=== PATIENT | male | born 1965 | race Caucasian/White ===

== ENCOUNTER 2016-07-03 10:48 | Emergency (ER) | payer BC ==
[2016-07-03 11:01] VITALS: BP 169/98
--- NOTE | 2016-07-03 11:57 | UC ---
Knee Pain HPI - HPI Summary HPI Summary: fell on Ice 3 days ago pain and swelling left knee-limping but can wb - History of Current Complaint Chief Complaint: UCLowerExtremity Stated Complaint: KNEE INJURY Time Seen by Provider: 07/03/16 11:54 Hx Obtained From: Patient Onset/Duration: Sudden Onset, Lasting Days - 3, Still Present Severity Initially: Moderate Severity Currently: Moderate Location Of Injury: left anterior knee Pain Intensity: 8 Pain Scale Used: 0-10 Numeric Character: Aching, Throbbing Aggravating Factor(s): Movement, Weight Bearing Alleviating Factor(s): Nothing Associated Signs And Symptoms: Positive: Swelling Able to Bear Weight: Yes - with pain - Allergies/Home Medications Allergies/Adverse Reactions: Allergies Allergy/AdvReac Type Severity Reaction Status Date / Time No Known Allergies Allergy Verified 07/03/16 10:57 Home Medications: Home Medications NK [No Home Medications Reported] 07/03/16 [History Confirmed 07/03/16] PMH/Surg Hx/FS Hx/Imm Hx Previously Healthy: No Endocrine History Of: Denies: Diabetes, Thyroid Disease Cardiovascular History Of: Reports: Hypertension - on bp meds as of 06/2013 Denies: Cardiac Disorders Respiratory History Of: Denies: COPD, Asthma GI/ History Of: Denies: Ulcer - Surgical History Surgical History: None - Family History Known Family History: Positive: Hypertension - Social History Occupation: Employed Full-time Lives: With Family Alcohol Use: Occasionally Alcohol Amount: 2 beers, twice a week Substance Use Type: None Substance Use Comment - Amount & Last Used: Hx cocaine use, > 20 years ago Smoking Status (MU): Heavy Every Day Tobacco Smoker Type: Cigarettes Amount Used/How Often: 1 ppd Length of Time of Smoking/Using Tobacco: 25 yrs Have You Smoked in the Last Year: Yes Household Exposure Type: Cigarettes Cessation Counseling: Counseled 3+Min - 10 Min Review of Systems Constitutional: Negative Skin: Negative Eyes: Negative ENT: Negative Respiratory: Negative Cardiovascular: Negative Gastrointestinal: Negative Genitourinary: Negative Motor: Negative Neurovascular: Negative Musculoskeletal: Negative, Arthralgia - left knee, Edema - left knee Neurological: Negative Psychological: Negative All Other Systems Reviewed And Are Negative: Yes Physical Exam Triage Information Reviewed: Yes Appearance: Well-Appearing, Pain Distress - mild, Obese Vital Signs: Initial Vital Signs Temp 99.0 F 07/03/16 10:59 Pulse 95 07/03/16 10:59 Resp 20 07/03/16 10:59 BP 169/98 07/03/16 10:59 Pulse Ox 99 07/03/16 10:59 Vital Signs Reviewed: Yes Eye Exam: Normal Eyes: Positive: Conjunctiva Clear ENT Exam: Normal ENT: Positive: Normal ENT inspection, Hearing grossly normal. Negative: Nasal congestion, Nasal drainage, Trismus, Muffled/hoarse voice Dental Exam: Normal Neck exam: Normal Neck: Positive: Supple, Nontender Respiratory Exam: Normal Respiratory: Positive: Chest non-tender, No respiratory distress, No accessory muscle use Cardiovascular Exam: Normal Cardiovascular: Positive: RRR, No Murmur, Pulses Normal, Brisk Capillary Refill Musculoskeletal Exam: Normal Musculoskeletal: Positive: Strength Intact, ROM Intact, Edema @ - left knee Neurological Exam: Normal Neurological: Positive: Alert Psychological Exam: Normal Skin Exam: Normal Diagnostics - Radiology No standard instances Xray Interpretation: No Acute Changes Radiology Interpretation Completed By: Radiologist Knee Pain Course/Dx - Course Course Of Treatment: rice, ibuprofen follow with ortho, bp recheck with pcp. nicotine cesation information - Differential Dx/Diagnosis Differential Diagnosis/HQI/PQRI: Contusion, Fracture (Closed), Sprain, Strain Provider Diagnoses: left knee contusion, hypertension with diagnosis, nicotine dependant Discharge - Discharge Plan Condition: Stable Disposition: HOME Patient Education Materials: How to Stop Smoking (ED), Cigarette Smoking and Your Health (GEN), Chronic Hypertension (ED), Contusion in Adults (ED), Knee Pain (ED), DASH Eating Plan (ED), RICE Therapy (ED) Referrals: Zohaib Omalley MD [Primary Care Provider] - 5 Days Chad Hanks MD [Medical Doctor] - 5 Days
--- NOTE | 2016-07-03 12:43 | RAD ---
Indication: Left knee pain swelling 4 views of left knee demonstrates no fracture or dislocation. Joint spaces all well-preserved. No joint effusion noted. IMPRESSION: Unremarkable left knee.
== END 2016-07-03 13:08 | disposition home or self-care (01) ==
LOC: UCEAST 10:48
DX: S80.02XA Contusion of left knee, initial encounter (principal); W00.0XXA Fall on same level due to ice and snow, initial encounter; Y93.9 Activity, unspecified; Y92.9 Unspecified place or not applicable; E66.9 Obesity, unspecified; I10 Essential (primary) hypertension; F17.210 Nicotine dependence, cigarettes, uncomplicated; Z71.6 Tobacco abuse counseling
CPT/HCPCS: 99212; G0463

== ENCOUNTER 2016-10-14 11:25 | Emergency (ER) | payer BC ==
--- NOTE | 2016-10-14 13:10 | RAD ---
INDICATION: Cough. COMPARISON: Comparison is made with a prior study from October 05, 2005. TECHNIQUE: Dual-energy PA and lateral views of the chest were obtained. FINDINGS: The heart is moderately enlarged and has increased in size. There is mild prominence of the interstitial markings. No significant focal infiltrate or pleural effusion is seen. There is flattening of the diaphragms suggestive of chronic obstructive pulmonary disease. There are chronic moderate compression fractures of lower dorsal and upper lumbar vertebra. IMPRESSION: 1. CARDIOMEGALY, INCREASED IN SIZE. 2. FINDINGS SUGGESTIVE OF COPD. 3. CHRONIC VERTEBRAL BODY COMPRESSION FRACTURES, UNCHANGED.
[2016-10-14 13:52] VITALS: BP 165/100
--- NOTE | 2016-10-14 14:36 | UC ---
Respiratory Complaint HPI - HPI Summary HPI Summary: THREE DAYS OF PRODUCTIVE COUGH; HEAD CONGESTION; LOW GRADE FEVER; NO CHEST PAIN. - History of Current Complaint Chief Complaint: UCRespiratory Stated Complaint: CHEST CONGESTION Time Seen by Provider: 10/14/16 12:23 Hx Obtained From: Patient Onset/Duration: Gradual Onset, Lasting Days, Still Present Severity Initially: Moderate Severity Currently: Moderate Pain Intensity: 0 Pain Scale Used: 0-10 Numeric Character: Cough: Productive Aggravating Factors: Nothing Alleviating Factors: Nothing Associated Signs And Symptoms: Positive: URI, Nasal Congestion, Hoarseness, Sinus Discomfort. Negative: Calf Pain, Calf Swelling - Risk Factors Pulmonary Embolism Risk Factors: Negative Cardiac Risk Factors: Negative Pseudomonas Risk Factors: Negative Tuberculosis Risk Factors: Negative - Allergies/Home Medications Allergies/Adverse Reactions: Allergies Allergy/AdvReac Type Severity Reaction Status Date / Time No Known Allergies Allergy Verified 10/14/16 11:32 Home Medications: Home Medications Pseudoephedrine TAB* [Sudafed TAB*] 1 tab PO 10/14/16 [History] PMH/Surg Hx/FS Hx/Imm Hx Previously Healthy: Yes - Surgical History Surgical History: None - Family History Known Family History: Positive: Cardiac Disease, Hypertension - Social History Occupation: Employed Full-time Lives: With Family Alcohol Use: Weekly Alcohol Amount: 2 beers, twice a week Substance Use Type: None Substance Use Comment - Amount & Last Used: Hx cocaine use, > 20 years ago Smoking Status (MU): Heavy Every Day Tobacco Smoker Type: Cigarettes Amount Used/How Often: 1 ppd Length of Time of Smoking/Using Tobacco: 25 yrs Have You Smoked in the Last Year: Yes Household Exposure Type: Cigarettes Cessation Counseling: Patient Advised to Stop Review of Systems Constitutional: Negative Skin: Negative Eyes: Negative ENT: Nasal Discharge, Sinus Congestion, Sinus Pain/Tenderness Respiratory: Cough Cardiovascular: Negative Gastrointestinal: Negative Genitourinary: Negative Motor: Negative Neurovascular: Negative Musculoskeletal: Negative Neurological: Negative Psychological: Negative All Other Systems Reviewed And Are Negative: Yes Physical Exam Triage Information Reviewed: Yes Appearance: Well-Appearing, No Pain Distress Vital Signs: Initial Vital Signs Temp 99.3 F 10/14/16 11:32 Pulse 92 10/14/16 11:32 Resp 18 10/14/16 11:32 BP 167/106 10/14/16 11:32 Pulse Ox 97 06/29/17 11:32 Vital Signs Reviewed: Yes Eye Exam: Normal ENT: Positive: Hearing grossly normal, Pharynx normal, Nasal congestion, TM bulging, TM dull Dental Exam: Normal Neck exam: Normal Neck: Positive: Supple, Nontender, No Lymphadenopathy Respiratory Exam: Other - COUGH Respiratory: Positive: Chest non-tender, Lungs clear, Normal breath sounds, No respiratory distress, No accessory muscle use Cardiovascular Exam: Normal Cardiovascular: Positive: RRR, No Murmur, Pulses Normal Abdominal Exam: Normal Musculoskeletal Exam: Normal Musculoskeletal: Positive: Strength Intact, ROM Intact Neurological Exam: Normal Psychological Exam: Normal Psychological: Positive: Normal Response To Family Skin Exam: Normal UC Diagnostic Evaluation - Laboratory O2 Sat by Pulse Oximetry: 97 Respiratory Course/Dx - Differential Dx/Diagnosis Differential Diagnosis/HQI/PQRI: Influenza, Sinusitis Provider Diagnoses: SINUSITIS; BRONCHITIS; CARDIOMEGALY, COPD; CHRONIC THORACIC VERTEBRAL BODY COMPRESSION FRACTURES. Discharge - Discharge Plan Condition: Stable Disposition: HOME Prescriptions: Azithromycin TAB* [Zithromax TAB (Z-ZEE) 250 mg #6 tabs] 250 mg PO DAILY #6 tab Benzonatate CAP* [Tessalon 100 MG CAP*] 100 mg PO TID PRN #15 cap PRN Reason: Cough Patient Education Materials: Vertebral Compression Fracture (ED), COPD ( Chronic Obstructive Pulmonary Disease) (ED), Chronic Bronchitis (ED), Hypertension (ED) Referrals: Zohaib Omalley MD [Primary Care Provider] -
== END 2016-10-14 13:55 | disposition home or self-care (01) ==
LOC: UCEAST 11:25
DX: J32.9 Chronic sinusitis, unspecified (principal); J44.9 Chronic obstructive pulmonary disease, unspecified; I51.7 Cardiomegaly; M48.54XA Collapsed vertebra, not elsewhere classified, thoracic region, initial encounter for fracture; F17.210 Nicotine dependence, cigarettes, uncomplicated
CPT/HCPCS: 71020; 99212; G0463

== ENCOUNTER 2018-03-20 07:03 | Emergency (ER) | payer SELFPAY ==
[2018-03-20 07:18] VITALS: BP 179/112
--- NOTE | 2018-03-20 07:33 | UC ---
Shortness of Breath HPI - HPI Summary HPI Summary: I is a 52-year-old male that has had worsening dyspnea on exertion for about 6 months. He states that he notices this primarily at night if he gets up to go to the bathroom or first thing in the morning. He has a long history of hypertension and has not taken his meds for over a year. He is a smoker. He denies any chest pain. Denies any cough or wheezing. He denies any edema of his lower extremities. Denies any recent URI symptoms. 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 He states he does not feel dyspneic while working. - History of Current Complaint Chief Complaint: UCRespiratory Stated Complaint: SOB Time Seen by Provider: 03/20/18 07:17 Hx Obtained From: Patient Onset/Duration: Gradual Onset, Lasting Weeks Timing: Constant Current Severity: Mild Dyspnea At: Exertion Alleviating Factors: Spontaneous Resolution Associated Signs & Symptoms: Negative: Cough (Productive), Cough (Nonproductive) , Cough (Bloody Sputum), Wheezing, Chest Pain w/Cough, Chest Pain Unrelated to Cough, Fever, Chills, Diaphoresis, Nasal Congestion, Dizzy, Calf Pain/Swelling, Edema - Allergy/Home Medications Allergies/Adverse Reactions: Allergies Allergy/AdvReac Type Severity Reaction Status Date / Time No Known Allergies Allergy Verified 03/20/18 07:18 Home Medications: Home Medications Ibuprofen 600 mg PO ONCE PRN 03/20/18 [History Confirmed 03/20/18] PMH/Surg Hx/FS Hx/Imm Hx Previously Healthy: Yes Cardiovascular History: Hypertension - Surgical History Surgical History: None - Family History Known Family History: Positive: Cardiac Disease, Hypertension - Social History Alcohol Use: Weekly Alcohol Amount: 2 beers, twice a week Substance Use Type: None Substance Use Comment - Amount & Last Used: Hx cocaine use, > 20 years ago Smoking Status (MU): Heavy Every Day Tobacco Smoker Type: Cigarettes Amount Used/How Often: 1 ppd Length of Time of Smoking/Using Tobacco: 25 yrs Have You Smoked in the Last Year: Yes Household Exposure Type: Cigarettes Cessation Counseling: Patient Advised to Stop Review of Systems All Other Systems Reviewed And Are Negative: Yes Constitutional: Positive: Negative Skin: Positive: Negative Eyes: Positive: Negative ENT: Positive: Negative Respiratory: Positive: Shortness Of Breath Cardiovascular: Positive: Negative Gastrointestinal: Positive: Negative Genitourinary: Positive: Negative Motor: Positive: Negative Neurovascular: Positive: Negative Musculoskeletal: Positive: Negative Neurological: Positive: Negative Psychological: Positive: Negative Physical Exam Triage Information Reviewed: Yes Appearance: Well-Appearing, No Pain Distress, Well-Nourished Vital Signs: Initial Vital Signs Temp 98.2 F 03/20/18 07:12 Pulse 101 03/20/18 07:12 Resp 22 03/20/18 07:12 BP 179/112 03/20/18 07:12 Pulse Ox 98 03/20/18 07:12 Vital Signs Reviewed: Yes Eyes: Positive: Conjunctiva Clear ENT: Positive: Hearing grossly normal. Negative: Nasal congestion, Nasal drainage, Tonsillar swelling, Tonsillar exudate, Trismus, Muffled voice, Hoarse voice, Dental tenderness Neck: Positive: Supple, Nontender, No Lymphadenopathy Respiratory: Positive: No respiratory distress, No accessory muscle use, Rhonchi - few Cardiovascular: Positive: RRR, No Murmur, Other: - distant heart sounds Musculoskeletal: Positive: ROM Intact, No Edema Neurological: Positive: Alert Psychological Exam: Normal Skin Exam: Normal Diagnostics - Radiology No standard instances Radiology Interpretation Completed By: Radiologist Summary of Radiographic Findings: #. The constellation of findings favors pulmonary vascular congestion and mild. interstitial edema with associated small pleural effusions new compared with the prior. exam. #. Elevated lung volumes favoring obstructive lung diseas - EKG Cardiac Rate: Tachycardia Cardiac Rhythm: Sinus: Normal Ectopy: None ST Segment: Non-Specific EKG Comparison: No Significant Change Summary of EKG Findings: sinus tach, LVH, no STEMI Shortness of Breath Dx - Course Course Of Treatment: mild interstitial pulmonary edema with small pleural effusions - Differential Dx/Diagnosis Provider Diagnosis: Hypertension, Pulmonary edema, Smoker, Cardiomegaly Discharge - Sign-Out/Discharge Documenting (check all that apply): Patient Departure All imaging exams completed and their final reports reviewed: Yes - Discharge Plan Condition: Stable Disposition: HOME Prescriptions: Lisinopril/HCTZ 20/25(NF) [Zestoretic 20/25(NF)] 1 tab PO DAILY #14 tab Patient Education Materials: Chronic Hypertension (ED), Pulmonary Edema (ED) Referrals: Zohaib Omalley MD [Primary Care Provider] - As Soon As Possible Additional Instructions: Your EKG showed LEFT VENTRICULAR HYPERTROPHY This means your heart is working hard due to your high blood pressure Your Chest XR showed CARDIOMEGALY : enlarged heart due to high blood pressure MILD INTERSTITIAL FLUID AND SMALL PLEURAL EFFUSIONS: fluid backed up in lungs as a result of high blood pressure POSSIBLE COPD: damage from smoking you need to stop smoking avoid advil/motrin or aleve for now see your MD JASON blood work is pending You may need other studies to evaluate your heart and lungs such as pulmonary function tests/echocardiogram etc IF YOUR SYMPTOM WORSEN OR IF YOU DEVELOP NEW SYMPTOMS GO TO THE ER - Billing Disposition and Condition Condition: STABLE Disposition: Home
[2018-03-20 13:03] LABS: ABS Basophils 0.1 10^3/ul (0-0.2); ABS Eosinophils 0.1 10^3/ul (0-0.6); ABS Lymphocytes 0.9 10^3/ul (1.0-4.8); ABS Monocytes 0.5 10^3/ul (0-0.8); ABS Neutrophils 8.1 10^3/ul (1.5-7.7); ABS Nucleated RBC 0 10^3/ul; Eosinophil % 1.1 %; Hematocrit 46 % (42-52); Hemoglobin 15.6 g/dl (14.0-18.0); Lymphocyte % 9.8 %; Mean Corpuscular HGB Conc 34 g/dl (31-36); Mean Corpuscular Hemoglobin 30 pg (27-31); Mean Corpuscular Volume 89 fL (80-94); Mean Platelet Volume 7.9 fL (7.4-10.4); Nucleated Red Blood Cells % 0.1; Platelet Count 247 10^3/ul (150-450); Red Blood Count 5.18 10^6/ul (4.00-5.40); Red Cell Distribution Width 14 % (10.5-15); White Blood Count 9.6 10^3/ul (3.5-10.8)
[2018-03-20 13:15] LABS: EGFR Non-African American 103.8 (>60)
--- NOTE | 2018-03-21 12:05 | UC ---
- Progress Note Progress Note: Reviewed blood work 03/20/18 as available. Blood glucose 106mg/dl. Likely secondary to sx as presented. F/u Dr. Omalley as planned, blood glucose recheck. Course/Dx - Diagnoses Provider Diagnoses: Hypertension, Pulmonary edema, Smoker, Cardiomegaly Discharge - Sign-Out/Discharge Documenting (check all that apply): Post-Discharge Follow Up All imaging exams completed and their final reports reviewed: Yes - Discharge Plan Condition: Stable Disposition: HOME Prescriptions: Lisinopril/HCTZ 20/(NF) [Zestoretic 20/25(NF)] 1 tab PO DAILY #14 tab Patient Education Materials: Pulmonary Edema (ED), Chronic Hypertension (ED) Referrals: Zohaib Omalley MD [Primary Care Provider] - As Soon As Possible Additional Instructions: BP here 179/112 Your EKG showed LEFT VENTRICULAR HYPERTROPHY This means your heart is working hard due to your high blood pressure Your Chest XR showed CARDIOMEGALY : enlarged heart due to high blood pressure MILD INTERSTITIAL FLUID AND SMALL PLEURAL EFFUSIONS: fluid backed up in lungs as a result of high blood pressure POSSIBLE COPD: damage from smoking you need to stop smoking avoid advil/motrin or aleve for now see your MD JASON blood work is pending You may need other studies to evaluate your heart and lungs such as pulmonary function tests/echocardiogram etc IF YOUR SYMPTOM WORSEN OR IF YOU DEVELOP NEW SYMPTOMS GO TO THE ER - Billing Disposition and Condition Condition: STABLE Disposition: Home
== END 2018-03-20 09:05 | disposition home or self-care (01) ==
LOC: UCEAST 07:03
DX: I11.9 Hypertensive heart disease without heart failure (principal); J81.1 Chronic pulmonary edema; F17.210 Nicotine dependence, cigarettes, uncomplicated
CPT/HCPCS: 36415; 71046; 80053; 85025; 93005; 99212; G0463

== ENCOUNTER 2018-07-23 09:01 | Emergency (ER) | payer SELFPAY ==
[2018-07-23 09:11] VITALS: BP 117/74
--- NOTE | 2018-07-23 10:19 | UC ---
Complaint Male HPI - HPI Summary HPI Summary: ONSET OF OVERALL MALAISE YESTERDAY. HAD SUBJECTIVE FEVER, SWEATS AND CHILLS. ENERGY LEVEL DECREASED. DEVELOPED URINARY BURNING PAIN WITH FREQUENCY AND URGENCY. DENIES FEVER, BACK PAIN, NAUSEA. NO PREVIOUS HISTORY OF UTI OR KIDNEY STONE. ADMITS HE HAS NOT HAD MUCH FLUID INTAKE OVER THE PAST COUPLE OF DAYS. - History of Current Complaint Chief Complaint: UCRespiratory Stated Complaint: COLD Time Seen by Provider: 07/23/18 09:32 Hx Obtained From: Patient Onset/Duration: Gradual Onset, Lasting Days, Still Present Timing: Constant Severity Initially: Moderate Severity Currently: Moderate Pain Intensity: 0 Pain Scale Used: 0-10 Numeric Character: Burning Aggravating Factor(s): Voiding Alleviating Factor(s): Nothing Associated Signs And Symptoms: Positive: Dysuria. Negative: Back Pain, Fever, Hematuria, Nausea, Penile Discharge - Allergies/Home Medications Allergies/Adverse Reactions: Allergies Allergy/AdvReac Type Severity Reaction Status Date / Time No Known Allergies Allergy Verified 07/23/18 09:11 PMH/Surg Hx/FS Hx/Imm Hx Cardiovascular History: Hypertension - Surgical History Surgical History: None - Family History Known Family History: Positive: Cardiac Disease, Hypertension - Social History Alcohol Use: Weekly Alcohol Amount: 2 beers, twice a week Substance Use Type: None Substance Use Comment - Amount & Last Used: Hx cocaine use, > 20 years ago Smoking Status (MU): Heavy Every Day Tobacco Smoker Type: Cigarettes Amount Used/How Often: 1 ppd Length of Time of Smoking/Using Tobacco: 25 yrs Have You Smoked in the Last Year: Yes Household Exposure Type: Cigarettes Review of Systems All Other Systems Reviewed And Are Negative: Yes Constitutional: Positive: Fever, Chills Respiratory: Positive: Negative Cardiovascular: Positive: Negative Gastrointestinal: Positive: Negative Genitourinary: Positive: Dysuria, Frequency, Urgency Physical Exam Triage Information Reviewed: Yes Appearance: Well-Appearing, No Pain Distress, Well-Nourished Vital Signs: Initial Vital Signs Temp 97.5 F 07/23/18 09:08 Pulse 96 07/23/18 09:08 Resp 18 07/23/18 09:08 BP 117/74 07/23/18 09:08 Pulse Ox 98 07/23/18 09:08 Laboratory Tests 07/23/18 09:20 POC Urine Color Dory POC Urine Clarity Cloudy POC Urine pH 5.0 POC Ur Specif [place] >= 1.030 POC Urine Protein 3+ A POC Ur Glucose (UA) Negative POC Urine Ketones Trace A POC Urine Blood 2+ A POC Urine Nitrite Positive A POC Urine Bilirubin 2+ A POC Urine Urobilinogen 1.0 POC U Leukocyte Esteras 1+ A Vital Signs Reviewed: Yes Eyes: Positive: Conjunctiva Clear ENT: Positive: Hearing grossly normal Neck: Positive: Supple Respiratory Exam: Normal Cardiovascular Exam: Normal Abdomen Description: Positive: Nontender, Soft. Negative: CVA Tenderness (R), CVA Tenderness (L), Distended, Guarding Musculoskeletal: Positive: No Edema Neurological: Positive: Alert Psychological: Positive: Age Appropriate Behavior Skin: Negative: Rashes Complaint Male Course/Dx - Course Course Of Treatment: URINE TEST GROSSLY POSITIVE. GIVEN PT WITH CHILLS AND SWEATS AND OVERALL MALAISE CONCERN FOR DEVELOPING PYELO OR POSSIBLE KIDNEY STONE. DISCUSSED CT SCAN TODAY FOR FURTHER EVALUATION BUT PT DECLINES. NO FEVER OR NAUSEA. PREFERS TO TRY ANTIBIOTICS FOR INITIAL TREATMENT AND WILL PUSH FLUIDS. IF NOT FEELING BETTER OVER NEXT 1-2 DAYS LOW THRESHOLD FOR GOING TO ER. - Differential Dx/Diagnosis Provider Diagnosis: UTI (urinary tract infection) Discharge - Sign-Out/Discharge Documenting (check all that apply): Patient Departure All imaging exams completed and their final reports reviewed: No Studies - Discharge Plan Condition: Stable Disposition: HOME Prescriptions: Sulfamethox/Trimethoprim DS* [Bactrim DS 800/160 TAB*] 1 tab PO BID #14 tab Patient Education Materials: Urinary Tract Infection in Men (ED) Referrals: Zohaib Omalley MD [Primary Care Provider] - If Needed Additional Instructions: Your urine test today is indicative of a urinary tract infection. Be sure to push fluids to stay well hydrated and take the antibiotic twice daily as prescribed. If you do not notice significant improvement over the next 24-48 hours go to the ED for further evaluation. - Billing Disposition and Condition Condition: STABLE Disposition: Home
--- NOTE | 2018-07-24 17:24 | UC ---
- Progress Note Progress Note: 07/24/2018 Urine culture positive for E.Coli Pt Rx Bactrim PO which covers it No change Christin Nice PA-C Course/Dx - Diagnoses Provider Diagnoses: UTI (urinary tract infection) Discharge - Sign-Out/Discharge Documenting (check all that apply): Post-Discharge Follow Up All imaging exams completed and their final reports reviewed: No Studies - Discharge Plan Condition: Stable Disposition: HOME Prescriptions: Sulfamethox/Trimethoprim DS* [Bactrim DS 800/160 TAB*] 1 tab PO BID #14 tab Patient Education Materials: Urinary Tract Infection in Men (ED) Referrals: Zohaib Omalley MD [Primary Care Provider] - If Needed Additional Instructions: Your urine test today is indicative of a urinary tract infection. Be sure to push fluids to stay well hydrated and take the antibiotic twice daily as prescribed. If you do not notice significant improvement over the next 24-48 hours go to the ED for further evaluation. - Billing Disposition and Condition Condition: STABLE Disposition: Home
== END 2018-07-23 10:12 | disposition home or self-care (01) ==
LOC: UCEAST 09:01
DX: N39.0 Urinary tract infection, site not specified (principal); F17.210 Nicotine dependence, cigarettes, uncomplicated
CPT/HCPCS: 81003; 87077; 87086; 87186; 99212; G0463